=== PATIENT | female | born 1985 | race Caucasian/White ===

== ENCOUNTER → 2022-03-08 | Outpatient (CLI) | payer BC, OTHER ==
--- NOTE | 2022-03-09 02:26 | MR ---
EXAMINATION TYPE: MR brain wo con DATE OF EXAM: 03/08/2022 COMPARISON: None HISTORY: Migraines, left eye blurriness when having migraine Multiplanar multiecho imaging of the brain performed with no contrast. Ventricles and sulci appear normal. There is no mass effect or midline shift. No sign of intracranial hemorrhage. Diffusion images show no sign of an acute infarct. The koroma and white matter structures have fairly normal signal pattern. No evidence of any significant cerebral edema. There is single 8 m m focus of increased signal in the left posterior temporal white matter adjacent to the lateral ventr icle. The brainstem is intact. The corpus callosum is intact. Sella turcica appears normal. No eviden ce of orbital mass. IMPRESSION: Single focus of increased signal in the white matter left posterior temporal lobe. The appearance is nonspecific and could be solitary focus of demyelinating disease.
--- NOTE | 2022-03-09 02:29 | MR ---
EXAMINATION TYPE: MR angio head wo con DATE OF EXAM: 03/08/2022 COMPARISON: None HISTORY: Migraines, left eye blurriness when having migraine MR angiographic images were obtained of the intracerebral arterial circulation. There is arterial flow in the anterior middle and posterior cerebral arteries bilaterally. There is a rterial flow in the vertebral basilar artery system. There is wide patency of the vessels. No evidenc e of stenosis. No evidence of intracranial aneurysm or neovascularity. No mass effect. There is arter ial flow in both distal internal carotid arteries. IMPRESSION: Normal MR angiography of the brain.
== END | disposition home or self-care (01) ==
LOC: RADMRIMAIN 17:58
PROVIDERS: ATTEND Family Medicine
DX: G43.909 Migraine, unspecified, not intractable, without status migrainosus (principal); H53.9 Unspecified visual disturbance
CPT/HCPCS: 70544; 70551

== ENCOUNTER → 2022-04-03 | Outpatient (CLI) | payer BC, OTHER | END | disposition home or self-care (01) | LOC: LABWHC1 15:44 | PROVIDERS: ATTEND Internal Medicine Gastroenterology | DX: Z53.9 Procedure and treatment not carried out, unspecified reason (principal) ==

== ENCOUNTER → 2022-04-10 | Outpatient (CLI) | payer BC, OTHER ==
[2022-04-03 22:51] LABS: Basophils # (A) 0.05 X 10*3/uL (0.00-0.10); Basophils % (A) 0.3 %; Eosinophils # (A) 0.03 X 10*3/uL (0.04-0.35); Eosinophils % (A) 0.2 %; HCT 45.7 % (37.2-46.3); HGB 15.1 g/dL (12.0-15.0); Immature Grans, Automated 0.5 %; Lymphocytes # (A) 2.96 X 10*3/uL (0.90-5.00); Lymphocytes % (A) 19.6 %; MCH 31.5 pg (27.0-32.0); MCV 95.4 fL (80.0-97.0); Mean Platelet Volume 9.1 fL (9.5-12.2); Monocytes # (A) 0.92 X 10*3/uL (0.20-1.00); Monocytes % (A) 6.1 %; NRBC Per 100 WBC 0 /100 WBCS (0.0-0.0); Neutrophils # (A) 11.11 X 10*3/uL (1.80-7.70); Neutrophils % (A) 73.3 %; Platelet Count 428 X 10*3/uL (140-440); RBC 4.79 X 10*6/uL (4.10-5.20); RDW 12.3 % (11.5-14.5); WBC 15.14 X 10*3/uL (4.50-10.00)
[2022-04-03 23:14] LABS: Protein, Total 6.6 g/dL (6.2-8.2)
[2022-04-03 23:28] LABS: Ceruloplasmin 35.6 mg/dL (20.0-60.0)
[2022-04-03 23:34] LABS: % Iron Saturation 13.57 (12.00-45.00); African American GFR (CKD) 130.5 (60.0-200.0); Albumin 4.3 g/dL (3.8-4.9); Albumin/Globulin Ratio 1.81 (1.60-3.17); Anion Gap 11.6 mmol/L (10.00-18.00); BUN/Creat Ratio 20.46 Ratio (12.00-20.00); Blood Urea Nitrogen 13.3 mg/dL (9.0-27.0); Calcium 9.7 mg/dL (8.7-10.3); Carbon Dioxide 27.5 mmol/L (20.0-27.5); Globulin 2.4 g/dL (1.6-3.3); Non-African American GFR(CKD) 112.6 (60.0-200.0); Potassium 4.3 mmol/L (3.5-5.5); Total Bilirubin 0.4 mg/dL (0.30-1.20); Total Protein 6.6 g/dL (6.2-8.2)
[2022-04-06 13:00] LABS: Gamma Globulin 0.86 g/dL (0.70-1.50)
--- NOTE | 2022-04-10 08:15 | US ---
EXAMINATION TYPE: US liver DATE OF EXAM: 04/10/2022 COMPARISON: NONE CLINICAL HISTORY: R74.01 elevated liver levels. TECHNIQUE: Multiple sonographic images of the right upper quadrant are obtained. 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 No suspicious masses. No ductal di lation. Gallbladder: wnl Evidence for sonographic Rosario's sign: no CBD: wnl Right Kidney: wnl IMPRESSION: 1. No evidence for acute process. 2. Mild hepatic steatosis.
== END | disposition home or self-care (01) ==
LOC: RADUSWWP 07:12
PROVIDERS: ATTEND Internal Medicine Gastroenterology
DX: K76.0 Fatty (change of) liver, not elsewhere classified (principal); R74.01 Elevation of levels of liver transaminase levels
CPT/HCPCS: 76705; 80053; 82103; 82390; 82728; 83516; 83540; 83550; 84165; 85025; 86038

== ENCOUNTER → 2022-10-05 | Outpatient (CLI) | payer BC, OTHER ==
[2022-10-05 15:41] LABS: Blood Urea Nitrogen 12.6 mg/dL (9.0-27.0); Glucose 83 mg/dL (70-110)
[2022-10-05 15:42] LABS: ALT 28 U/L (8-44); AST 21 U/L (13-35); Albumin 4.5 d/dL (3.8-4.9); Alkaline Phosphatase 80 U/L (41-126); Calcium 9.9 mg/dL (8.7-10.3); Carbon Dioxide 24.2 mmol/L (21.6-31.8); Chloride 102 mmol/L (96-109); Globulin 2.5 d/dL (1.6-3.3); Potassium 4.6 mmol/L (3.5-5.5); Sodium 138 mmol/L (135-145); Total Bilirubin 0.5 mg/dL (0.3-1.2)
[2022-10-05 16:35] LABS: Basophils # (A) 0.04 X 10*3/uL (0.00-0.10); Basophils % (A) 0.4 %; Eosinophils # (A) 0.04 X 10*3/uL (0.04-0.35); Eosinophils % (A) 0.4 %; HGB 14.4 d/dL (12.0-15.0); Lymphocytes # (A) 2.62 X 10*3/uL (0.90-5.00); Lymphocytes % (A) 23.4 %; MCH 30.5 pg (27.0-32.0); MCHC 32.7 d/dL (32.0-37.0); MCV 93.2 FL (80.0-97.0); Mean Platelet Volume 9.3 FL (9.5-12.2); Monocytes # (A) 0.75 X 10*3/uL (0.20-1.00); Monocytes % (A) 6.7 %; NRBC Per 100 WBC 0 X 10*3/uL (0.00-0.01); Neutrophils % (A) 68.7 %; Platelet Count 336 X 10*3/uL (140-440); RBC 4.72 X 10*6/uL (4.10-5.20); RDW 12.1 % (11.5-14.5); WBC 11.19 X 10*3/uL (4.50-10.00)
== END | disposition home or self-care (01) ==
LOC: LABWHC1 09:05
PROVIDERS: ATTEND Internal Medicine Gastroenterology
DX: K76.0 Fatty (change of) liver, not elsewhere classified (principal)
CPT/HCPCS: 36415; 80053; 85025

== ENCOUNTER → 2023-10-26 | Outpatient (CLI) | payer BC, OTHER ==
--- NOTE | 2023-10-26 15:33 | XR ---
EXAMINATION TYPE: XR lumbar spine 2 or 3V DATE OF EXAM: 10/26/2023 2:55 PM CLINICAL INDICATION:Female, 38 years old with history of Pain M54.50; COMPARISON: None TECHNIQUE: XR lumbar spine 2 or 3V - Frontal, lateral and coned in L5-S1 lateral views of the spine. FINDINGS: No evidence of any acute osseous pathology. No evidence of loss of vertebral body height i s seen. There is normal alignment of the lumbar vertebral bodies. Scattered disc space narrowing. Mul tilevel marginal osteophyte formation throughout the visualized spine. There is facet joint arthropat hy throughout the spine. Scattered at least mild neural foraminal stenosis. IMPRESSION: 1. No acute fracture. 2. Mild multilevel disc degeneration.
== END | disposition home or self-care (01) ==
LOC: RADXRMAIN 14:30
PROVIDERS: ATTEND Family Medicine
DX: M51.36 Other intervertebral disc degeneration, lumbar region (principal)
CPT/HCPCS: 72100

== ENCOUNTER 2024-02-08 07:53 | Day surgery (SDC) | payer BC, OTHER ==
[~2024-02-08 07:53] MED LIST: LIDOCAINE 1% (10MG/ML) FOR IV START INTRADERMA PRN; MIDAZOLAM 2 MG/2 ML VIAL IV PRN
[2024-02-08] MEDS: IV FLUID CONTINUATION 1,000 ML IV ONE (08:05)
[2024-02-08] MEDS: LACTATED RINGERS 1,000 ML IV SCH (08:37)
[2024-02-08] MEDS: DEXAMETHASONE SOD PHOSPHATE 4 MG/ML 1 ML VIAL IV ONE (08:38)
[2024-02-08] MEDS: ONDANSETRON 4 MG/2 ML VIAL IVP ONE (08:38)
[2024-02-08] MEDS: MIDAZOLAM 2 MG/2 ML VIAL IVP ONE (08:46)
[2024-02-08] MEDS ORDERED: fentaNYL (PF) 50 MCG/ML 2 ML AMP ONE (09:04)
[2024-02-08] MEDS ORDERED: PROPOFOL 10 MG/ML 20 ML VIAL IV ONE (09:04)
[2024-02-08] MEDS ORDERED: LIDOCAINE 1% INJ 10MG/ML (20 ML MDV) ONE (09:04)
[2024-02-08] MEDS ORDERED: DEXAMETHASONE SOD PHOSPHATE 4 MG/ML 1 ML VIAL ONE (09:04)
[2024-02-08] MEDS ORDERED: ROPIVACAINE 5 MG/ML 30 ML VIAL ONE (09:04)
[2024-02-08] MEDS ORDERED: MIDAZOLAM 2 MG/2 ML VIAL ONE (09:04)
[2024-02-08] MEDS: ceFAZolin 1,000 MG in SODIUM CHLORIDE 0.9% 1,000 ML IRRIGATION ONE (09:24)
--- NOTE | 2024-02-08 10:00 | P.OP ---
Date of Procedure: 02/08/24 Preoperative Diagnosis: 1. Plantar fasciitis left foot 2. Calcaneal spur left foot 3. Gastroc equinus left leg Postoperative Diagnosis: 1. Same 2. Same 3. Same Procedure(s) Performed: 1. Gastroc recession left leg 2. Plantar fasciotomy left foot 3. Excision of calcaneal spur left foot Implants: none Anesthesia: JOYCE Surgeon: Chase Gilbert Estimated Blood Loss (ml): 2 Pathology: none sent Condition: stable Disposition: PACU Description of Procedure: Prior to the patient being brought to the operative room, anesthesia administered a nerve block on the left lower extremity. Then the patient was brought into the operating room and placed on the table in the supine position. Timeout was taken to confirm correct patient identifiers, correct laterally of surgery, and correct procedure. Once all staff in the room were in agreement with the timeout, the patient was induced and placed under general anesthesia. A well-padded tourniquet was placed on the left thigh and the left leg was prepped and draped in usual manner. The left leg was exsanguinated and the tourniquet inflated to 250 mmHg. Attention was first directed over the posterior medial aspect of the calf. An incision was made over the Achilles tendon aponeurosis distal to the gastroc muscle belly. The incision was deepened down to the subcutaneous tissue there for to identify, avoid, and retract any neurovascular structures and cauterize any bleeding vessels. Blunt dissection was continued down to the deep fascia. The fascia was incised over the aponeurosis and then the tissue was reflected bluntly from the aponeurosis. The aponeurosis is mobilizing transverse incision was made from lateral to medial through the aponeurosis taking care to prevent significant trauma to the underlying muscle belly. Once released ankle was dorsiflexed and a 1.5 cm to 2.0 cm gap appeared indicating a full release. The wound was irrigated thoroughly with antibiotic saline. Subcutaneous closure was done with 4-0 Monocryl and skin closure done with 4-0 Stratafix in a running subcuticular manner. Dermal glue was applied and allowed to dry then covered Steri-Strips. attention then directed over the medial aspect of the calcaneus near the plantar fascial insertion. Live fluoroscopy was used to identify the plantar calcaneal spur which indicated the origination point of the plantar fascia. Small incision was made over this area on the medial aspect of the heel. The incision was deepened down to the saphenous tissue careful to identify, avoid, and retract any neurovascular structures and cauterize any bleeding vessels. Blunt dissection was then carried down until the plantar fascial was palpated. Blunt instrumentation was used to create tissue planes dorsal and plantar to the outline of the plantar fascia just distal to the calcaneal spur. Under live fluoroscopy, a scalpel was used to resect the medial band of the plantar fascial holding digits dorsiflexed. A palpable release could be felt and there was laxity within the medial band of plantar fascia. The resection was completed the midline of the calcaneus. Then a 4 mm wedge bur was inserted and used to reduce the calcaneal spur under live fluoroscopy. The incision was thoroughly i rrigated with anatomic saline. The skin was repaired with 3-0 nylon. Arthrex jumpstart was placed over both incisions. Dry sterile dressings applied the left leg. The tourniquet was released and capillary refill return to all digits of the left foot. The patient's placed in a well-padded, well molded plaster posterior mold/sugar tong splint. Ankle was held in neutral position until the splint was fully dried. Then anesthesia was reversed and the patient was taken recovery with vital signs stable.
[2024-02-08] MEDS: HYDROmorphone 0.5 MG/0.5 ML SYRINGE IVP PRN (10:11)
[2024-02-08 10:14] VITALS: TEMP 97
[2024-02-08] MEDS: fentaNYL (PF) 50 MCG/ML 2 ML AMP IVP PRN (10:28)
[2024-02-08 11:12] VITALS: BP 132/87; PULSE 90; RESP 14
--- NOTE | 2024-02-10 19:32 | P.ANPRN ---
Procedure Note - Anesthesia - Nerve Block Performed Left Adductor Canal Single Time Out Performed: Yes Date of Procedure: 02/08/24 Procedure Start Time: 08:45 Procedure Stop Time: 08:48 Location of Patient: PreOp Indication: Acute Post-Operative Pain, Requested by Surgeon Sedation Type: Sedate with meaningful contact maintained Preparation: Sterile Prep Position: Supine Needle Types: Pajunk Needle Gauge: 21 Ultrasound used to visualize needle placement: Yes Ultrasound used to observe medication spread: Yes Blood Aspirated: No Pain Paresthesia on Injection Noted: No Resistance on Injection: Normal Image Stored and Saved: Yes Events: Uneventful and Well Tolerated (Ropivacaine 0.5% 20 cc plus dexamethasone 4 mg)
--- NOTE | 2024-02-10 19:34 | P.ANPRN ---
Procedure Note - Anesthesia - Nerve Block Performed Left Popliteal Single Time Out Performed: Yes Date of Procedure: 02/08/24 Procedure Start Time: 08:49 Procedure Stop Time: 08:51 Location of Patient: PreOp Indication: Acute Post-Operative Pain, Requested by Surgeon Sedation Type: Sedate with meaningful contact maintained Preparation: Sterile Prep Position: Right Lateral Needle Types: Pajunk Needle Gauge: 21 Ultrasound used to visualize needle placement: Yes Ultrasound used to observe medication spread: Yes Blood Aspirated: No Pain Paresthesia on Injection Noted: No Resistance on Injection: Normal Image Stored and Saved: Yes Events: Uneventful and Well Tolerated (Ropivacaine 0.5% 20 cc plus dexamethasone 4 mg)
== END 2024-02-08 11:46 | disposition home or self-care (01) ==
LOC: OR 07:53
PROVIDERS: ATTEND Podiatrist
DX: M72.2 Plantar fascial fibromatosis (principal); M77.32 Calcaneal spur, left foot; M62.462 Contracture of muscle, left lower leg; E78.5 Hyperlipidemia, unspecified; F32.A Depression, unspecified; Z79.899 Other long term (current) drug therapy
CPT/HCPCS: 64447; 81025; 64445; 27687; J2250; J1100; J0690 ×2; J2405; J2003; J3010; J2795; J2704; J1171

== ENCOUNTER → 2024-04-07 | Outpatient (CLI) | payer BC, OTHER ==
--- NOTE | 2024-04-22 11:26 | MM ---
Reason for Exam: Screening (asymptomatic). Last mammogram was performed 3 year(s) and 9 month(s) ago. Patient History: Menarche at age 12. First Full-Term at age 21. Premenopausal. Risk Values: Zoila 5 year model risk: 0.5%. NCI Lifetime model risk: 9.0%. Prior Study Comparison: 06/18/2020 Bilateral Screening Mammogram, [facility]. Tissue Density: The breasts are heterogeneously dense, which may obscure small masses. Findings: Analyzed By CAD. Right breast: Stable right breast lesion with biopsy clip. There is no suspicious group of microcalcifications or new suspicious mass. Left breast: There is no suspicious group of microcalcifications or new suspicious mass. Overall Assessment: Benign, BI-RAD 2 Management: Screening Mammogram of both breasts in [address] [facility] will attempt to contact patient to return for supplemental views and ultrasound if indicated. Patient should continue monthly self-breast exams. A clinical breast exam by your physician is recommended on an annual basis. This exam should not preclude additional follow-up of suspicious palpable abnormalities. Note on Zoila scores and lifetime risk: 1. A Zoila score greater than 3% is considered moderate risk. If this is the case, consider specialist referral to assess eligibility for a risk reducing agent. 2. If overall lifetime risk for the development of breast cancer is 20% or higher, the patient may qualify for future screening with alternating mammogram and breast MRI. [facility], , 04/22/2024 11:23 AM. Electronically signed and approved by: David Chao DO
== END | disposition home or self-care (01) ==
LOC: RADMAMWWP 08:48
PROVIDERS: ATTEND Obstetrics & Gynecology
DX: Z12.31 Encounter for screening mammogram for malignant neoplasm of breast (principal); R92.333 Mammographic heterogeneous density, bilateral breasts; Z98.82 Breast implant status
CPT/HCPCS: 77063; 77067

== ENCOUNTER → 2024-07-18 | Outpatient (CLI) | payer BC ==
[2024-07-18 16:36] LABS: Basophils # (A) 0.04 X 10*3/uL (0.00-0.10); Basophils % (A) 0.5 %; Eosinophils # (A) 0.05 X 10*3/uL (0.04-0.35); Eosinophils % (A) 0.6 %; HCT 42.8 % (37.2-46.3); HGB 14.8 g/dL (12.0-15.0); Lymphocytes # (A) 2.08 X 10*3/uL (0.90-5.00); Lymphocytes % (A) 26.3 %; MCH 31.1 pg (27.0-32.0); MCHC 34.6 g/dL (32.0-37.0); MCV 89.9 FL (80.0-97.0); Mean Platelet Volume 9.3 FL (9.5-12.2); Monocytes # (A) 0.68 X 10*3/uL (0.20-1.00); Monocytes % (A) 8.6 %; NRBC Per 100 WBC 0 X 10*3/uL (0.00-0.01); Neutrophils # (A) 5.04 X 10*3/uL (1.80-7.70); Neutrophils % (A) 63.6 %; Platelet Count 356 X 10*3/uL (140-440); RBC 4.76 X 10*6/uL (4.10-5.20); RDW 12.3 % (11.5-14.5); WBC 7.92 X 10*3/uL (4.50-10.00)
[2024-07-18 16:46] LABS: ALT 33 U/L (8-44); AST 24 U/L (13-35); Albumin 4.4 g/dL (3.8-4.9); Alkaline Phosphatase 77 U/L (41-126); BUN/Creat Ratio 18.83 Ratio (12.00-20.00); Blood Urea Nitrogen 11.3 mg/dL (9.0-27.0); Calcium 9.8 mg/dL (8.7-10.3); Carbon Dioxide 25.9 mmol/L (21.6-31.8); Chloride 106 mmol/L (96-109); Globulin 2.1 g/dL (1.6-3.3); Glucose 92 mg/dL (70-110); Potassium 4.8 mmol/L (3.5-5.5); Sodium 143 mmol/L (135-145); T4, Free (Free Thyroxine) 1.64 ng/dL (0.80-1.80); Total Bilirubin 0.6 mg/dL (0.3-1.2); Total Protein 6.5 g/dL (6.2-8.2)
== END | disposition home or self-care (01) ==
LOC: LABWHC1 09:22
PROVIDERS: ATTEND Internal Medicine Gastroenterology
DX: E63.9 Nutritional deficiency, unspecified (principal); K76.0 Fatty (change of) liver, not elsewhere classified
CPT/HCPCS: 36415; 80053; 82306; 84439; 84443; 85025